=== PATIENT | male | born 1980 | race Caucasian/White ===

== ENCOUNTER 2018-06-03 08:17 | Emergency (ER) | payer BC ==
--- NOTE | 2018-06-03 08:32 | EDM.PDOCBH ---
ED HPI GENERAL MEDICAL PROBLEM - General Chief Complaint: Behavioral/Psych Stated Complaint: L ARM PAIN Time Seen by Provider: 06/03/18 08:32 Source of Information: Reports: Patient History Limitations: Reports: No Limitations - History of Present Illness INITIAL COMMENTS - FREE TEXT/NARRATIVE: 38-year-old male presents to the ED feeling quite anxious and agitated. He states his left elbow on arm is aching quite badly been doing this off and on for the last 2 months. Feels grating and crepitus within the elbow at times. States when it does this it makes and worried that its his heart. This in turn creates a good deal of anxiety. Onset: Gradual Onset Date: 06/02/18 Duration: Hour(s): (Started last night before bed and he didn't sleep much.) Location: Reports: Chest (Left precordial chest discomfort.), Upper Extremity, Left Quality: Reports: Ache (Left upper extremity pain and discomfort particularly in the elbow.) Severity: Moderate Improves with: Reports: None Worsens with: Reports: None Context: Denies: Activity, Exercise, Lifting, Sick Contact, Trauma Associated Symptoms: Reports: Chest Pain, Shortness of Breath. 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) Left Arm Pain Score (Numeric/FACES): 4 - Related Data Allergies Allergy/AdvReac Type Severity Reaction Status Date / Time No Known Allergies Allergy Verified 06/03/18 08:28 Home Meds: Home Meds Citalopram [Citalopram HBr] 20 mg PO DAILY #30 tab 06/03/18 [Rx] LORazepam [Ativan] 1 mg PO Q12H PRN #10 tablet 06/03/18 [Rx] Past Medical History Psychiatric History: Reports: Anxiety (Has had a panic attack before) Social & Family History - Tobacco Use Smoking Status *Q: Current Every Day Smoker Years of Tobacco use: 15 Packs/Tins Daily: 0.5 - Caffeine Use Caffeine Use: Reports: Soda - Recreational Drug Use Recreational Drug Use: No - Living Situation & Occupation Living situation: Reports: Single Occupation: Employed ED ROS GENERAL - Review of Systems Review Of Systems: See Below Constitutional: Reports: Weakness, Fatigue, Decreased Appetite. Denies: Fever, Chills, Malaise HEENT: Reports: No Symptoms Respiratory: Reports: Shortness of Breath. Denies: Wheezing, Pleuritic Chest Pain, Cough, Sputum Cardiovascular: Reports: Chest Pain (Left pressure in his precordial chest.), Blood Pressure Problem, Lightheadedness. Denies: Claudication, Dyspnea on Exertion, Edema, Orthopnea (Not usually but elevated at this time 160 07/26/02) Endocrine: Reports: Fatigue GI/Abdominal: Reports: Nausea (He believes from following a ketogenic diet the last 4-5 days.) : Reports: No Symptoms Musculoskeletal: Reports: Other (Constant aching discomfort in his left elbow for the last 2 months. No known trauma or injuries. Dates it cracks and rates at times. This in turn) Skin: Reports: No Symptoms ( makes the left arm ache from elbow to the hand and sometimes into the shoulder. This makes him concerned that it's related to his heart.) Neurological: Reports: No Symptoms Psychiatric: Reports: Anxiety Hematologic/Lymphatic: Reports: No Symptoms Immunologic: Reports: No Symptoms ED EXAM, BEHAVIORAL HEALTH - Physical Exam Exam: See Below Exam Limited By: No Limitations General Appearance: Alert, WD/WN, Moderate Distress Eye Exam: Bilateral Eye: Normal Inspection (He is quite antsy in the room had difficulty lying still. Is very anxious.) Respiratory/Chest: No Respiratory Distress, Lungs Clear, Normal Breath Sounds, No Accessory Muscle Use, Chest Non-Tender Cardiovascular: Normal Peripheral Pulses, Regular Rate, Rhythm, No Edema, No Gallop, No Murmur, No Rub GI/Abdominal: Normal Bowel Sounds, Soft, Non-Tender, No Organomegaly, No Abnormal Bruit, No Mass, Pelvis Stable Back Exam: Normal Inspection, Full Range of Motion. No: CVA Tenderness (L), CVA Tenderness (R) Extremities: Normal Inspection, Normal Range of Motion, Non-Tender, No Pedal Edema, Other (I find full pronation supination at the elbow without grating, crepitus. No obvious deformities or swellings.) Neurological: Alert, Normal Mood/Affect, CN II-XII Intact, Normal Cognition, Oriented x 3, Abn 2 Pt Discrimination Psychiatric: Restless, Other (Anxious) Skin Exam: Warm, Dry, Intact, Normal color, No rash COURSE, BEHAVIORAL HEALTH COMP - Course Vital Signs: Last Vital Signs Temp 35.9 C 06/03/18 08:23 Pulse 98 06/03/18 08:23 Resp 18 06/03/18 08:23 BP 163/103 H 06/03/18 08:23 Pulse Ox 100 06/03/18 08:23 Orders, Labs, Meds: Active Orders 24 hr Category Date Time Status EKG Documentation Completion [RC] STAT Care 06/03/18 08:49 Active Laboratory Tests 06/03/18 06/03/18 Range/Units 09:15 09:15 WBC 11.12 H (4.23-9.07) K/mm3 RBC 5.50 (4.63-6.08) M/mm3 Hgb 16.2 (13.7-17.5) gm/L Hct 45.9 (40.1-51.0) % MCV 83.5 (79.0-92.2) fl MCH 29.5 (25.7-32.2) pg MCHC 35.3 (32.2-35.5) g/dl RDW Std Deviation 39.2 (35.1-43.9) fL Plt Count 233 (163-337) K/mm3 MPV 11.1 (9.4-12.3) fl Neutrophils % (Manual) 65 H (40-60) % Band Neutrophils % 0 (0-10) % Lymphocytes % (Manual) 26 (20-40) % Atypical Lymphs % 0 % Monocytes % (Manual) 8 (2-10) % Eosinophils % (Manual) 1 (0.8-7.0) % Basophils % (Manual) 0 L (0.2-1.2) Platelet Estimate Adequate RBC Morph Comment Normal Sodium 140 (136-145) mEq/L Potassium 4.1 (3.5-5.1) mEq/L Chloride 105 (98-107) mEq/L Carbon Dioxide 25 (21-32) mEq/L Anion Gap 14.1 (5-15) BUN 16 (7-18) mg/dL Creatinine 1.3 (0.7-1.3) mg/dL Est Cr Clr Drug Dosing 83.67 mL/min Estimated GFR (MDRD) > 60 (>60) mL/min BUN/Creatinine Ratio 12.3 L (14-18) Glucose 108 H (74-106) mg/dL Calcium 9.6 (8.5-10.1) mg/dL Total Bilirubin 0.2 (0.2-1.0) mg/dL AST 31 (15-37) U/L ALT 72 H (16-63) U/L Alkaline Phosphatase 82 (46-116) U/L CK-MB (CK-2) 2.2 (0-3.6) ng/ml Troponin I < 0.017 (0.00-0.056) ng/mL Total Protein 7.7 (6.4-8.2) g/dl Albumin 4.2 (3.4-5.0) g/dl Globulin 3.5 gm/dL Albumin/Globulin Ratio 1.2 (1-2) Medications Discontinued Medications Generic Name Dose Route Start Last Admin Trade Name Freq PRN Reason Stop Dose Admin Lorazepam 1 mg 06/03/18 08:51 06/03/18 09:15 Ativan IVPUSH 06/03/18 08:52 1 mg ONETIME ONE Administration Re-Assessment/Re-Exam Date: 06/03/18 (Labs are back. White count is 11.12. Differential 65% percent neutrophils no bands. Hemoglobin is 16.2 with hematocrit 45.9. MCV is normal at 83.5. Sodium 140 potassium 4.1 chloride 105 bicarbonate 25. Anion gap is 14.1. BUN is 16 with a creatinine 1.3. Estimated GFR is greater than 60. Glucose is 108. Calcium is 9.6. Total bilirubin is 0.2. Liver function normal other than ALT being mildly elevated at 72. Alk phosphatase is 82. CK-MB fraction is 2.2. Troponin I is less than 0.017. Chest x -ray is completely normal. X-rays of his left elbow reveal a small detached olecranon spur which I think may be causing his pain and clicking that he's aware of. Patient is feeling better. He was sleeping when I woke him up. Of course he worked all night. We spoke about chronic anxiety disorder and decision made to trial him on a course of the citalopram 20 mg once daily to try and bring anxiety under control long-term. I will also send him home with 10 tablets of Ativan 1 mg strength to be used on a when necessary basis for anxiety attack. Advised that the spur broken off his left olecranon process could be removed by orthopedic surgeon if he so desires.) Departure - Departure Time of Disposition: 11:09 Disposition: Home, Self-Care 01 Condition: Fair Clinical Impression: Generalized anxiety disorder, Non-cardiac chest pain, Chronic pain of left elbow - Discharge Information *PRESCRIPTION DRUG MONITORING PROGRAM REVIEWED*: Not Applicable *COPY OF PRESCRIPTION DRUG MONITORING REPORT IN PATIENT COLETTE: Not Applicable Prescriptions: Citalopram [Citalopram HBr] 20 mg PO DAILY #30 tab LORazepam [Ativan] 1 mg PO Q12H PRN #10 tablet PRN Reason: Anxiety Instructions: Generalized Anxiety Disorder, Pediatric, Nonspecific Chest Pain, [id number] Referrals: Emilia Mishra MD [Primary Care Provider] - Forms: ED Department Discharge Additional Instructions: Evaluation in the emergency room today in regards to persistent pain in your left elbow and arm for the last 2 months or more. X-rays of the elbow reveal that there is a spur that has broken off the back of the olecranon which is your tip of your elbow and distal borders irritating the underlying olecranon bursa and causing intermittent pain inflammation and as you already are where he can put her elbow on a firm surface the long without having pain. This could be removed by orthopedic surgeon. If you're considering this please arrange to see Dr. Vogt--who works on the second floor of our hospital. You could arrange an appointment at [phone] for consultation regards to having the broken spur removed. Second problem is generalized anxiety disorder which is interfering with her lifestyle good deal. Suggest starting citalopram 20 mg tablet once daily and continue this for a minimum of 6 months to bring anxiety or panic attacks under control. I also wrote a prescription for Ativan 1 mg tablet and you can take this every 12 hours as needed for relief of an anxiety or panic attack and/or to help sleep because of worry/stress. The citalopram medication is not addicting is very safe to use long-term. It however will take at least 12-14 days to start to work. I would suggest ranging for follow-up with one of the nurse practitioners on the third floor of the hospital such as Yenny Byers or Dory Newberry. An appointment can only be arranged with one of these 2 providers at [phone]. - My Orders Last 24 Hours: My Active Orders 06/03/18 08:49 EKG Documentation Completion [RC] STAT - Assessment/Plan Last 24 Hours: My Active Orders 06/03/18 08:49 EKG Documentation Completion [RC] STAT
[2018-06-03] MEDS ORDERED: LORazepam 2 MG/ML SDV IVPUSH ONE (08:51)
--- NOTE | 2018-06-03 10:38 | CR ---
Chest: Frontal view of the chest was obtained. Comparison: Prior chest x-ray of 12/21/09. Heart size and mediastinum are normal. Lungs are clear. Bony structures are unremarkable. Impression: 1. Nothing acute is seen on portable chest x-ray. Diagnostic code #1
--- NOTE | 2018-06-03 10:39 | CR ---
Left elbow: Four views of the left elbow were obtained. Comparison: No prior elbow exam. Small detached spur noted off the olecranon process. No joint effusion is seen. Joint spaces within the elbow are maintained. No acute fracture or other abnormality is seen. Impression: 1. Small detached olecranon spur. 2. Left elbow study is otherwise unremarkable Diagnostic code #2
== END 2018-06-03 11:25 | disposition home or self-care (01) ==
LOC: JD.ED 08:17
DX: F41.1 Generalized anxiety disorder (principal); R07.89 Other chest pain; M25.522 Pain in left elbow; G89.29 Other chronic pain; F17.210 Nicotine dependence, cigarettes, uncomplicated
CPT/HCPCS: 36415; 71045; 73080; 80053; 82553; 84484; 85007; 85027; 93005; 96374; 99284; J2060